=== PATIENT | male | born 1965 | race Two or more races ===

== ENCOUNTER 2021-07-15 07:15 | Emergency (ER) | payer OTHER ==
[~2021-07-15] VITALS: Ht 185.4 cm; Wt 92.0 kg
[2021-07-15] MEDS ORDERED: KETOROLAC 30 MG/ML VIAL. IVP ONE (09:15)
[2021-07-15 09:34] LABS: BASO # 0.1 x10^3/uL (0.0-0.2); BASO % 1 % (0-3); EOS # 0.1 x10^3/uL (0.0-0.7); EOS % 1 % (0-3); HEMOGLOBIN 15.8 g/dL (13.0-17.5); LYMPH # 3.1 x10^3/uL (1.0-4.8); LYMPH % 41 % (24-48); MEAN CORPUSCULAR HEMOGLOBIN 31 pg (25-35); MEAN CORPUSCULAR HGB CONC 35 g/dL (31-37); MEAN CORPUSCULAR VOLUME 87 fL (79-100); MONO # 0.7 x10^3/uL (0.0-1.1); MONO % 9 % (0-9); NEUT # 3.6 x10^3/uL (1.8-7.7); NEUT % 48 % (31-73); PLATELET COUNT 318 x10^3/uL (140-400); RED BLOOD COUNT 5.19 x10^6/uL (4.30-5.70); RED CELL DISTRIBUTION WIDTH 13.1 % (11.5-14.5); WHITE BLOOD COUNT 7.5 x10^3/uL (4.0-11.0)
[2021-07-15 09:42] LABS: CALCIUM 8.7 mg/dL (8.5-10.1); GFR 77.6; POTASSIUM 3.4 mmol/L (3.5-5.1)
[2021-07-15] MEDS ORDERED: IOHEXOL 300 MG/ML 100ML VIAL. IV ONE (09:45)
[2021-07-15 09:48] LABS: ALBUMIN 3.6 g/dL (3.4-5.0); ALBUMIN/GLOBULIN RATIO 0.8 (1.0-1.7); TOTAL BILIRUBIN 0.8 mg/dL (0.2-1.0); TOTAL PROTEIN 7.9 g/dL (6.4-8.2)
[2021-07-15] MEDS ORDERED: CONTRAST GIVEN. MC PRN (10:00)
--- NOTE | 2021-07-15 10:19 | RAD ---
Examination: CT abdomen pelvis with IV contrast HISTORY: History of left inguinal hernia COMPARISON: None available Technique: Axial CT images of the abdomen without contrast. Coronal and sagittal reformats are perfor med Exposure: One or more of the following individualized dose reduction techniques were utilized for thi s examination: 1. Automated exposure control 2. Adjustment of the mA and/or kV according to patient size 3. Use of iterative reconstruction technique FINDINGS: Minimal bibasilar lung atelectasis. No evidence of free air identified in the abdomen.The liver, spl een, adrenals grossly appears unremarkable. The gallbladder is mildly distended. Stomach is mildly di stended. The visualized pancreas grossly appears unremarkable. The small bowel is mildly distended. T he appendix is normal. Feces and gas noted in the colon. Moderate size left inguinal hernia identifie d extending into the groin region containing fat, and loop of colon without evidence of obstruction. The bilateral kidneys enhance symmetrically. Urinary bladder is mildly distended No evidence of lytic bony destructive lesion. IMPRESSION: 1. Moderate size left inguinal hernia identified extending into the groin region containing fat, and loop of colon without evidence of obstruction. Electronically signed by: Jim Buchanan MD (07/15/2021 10:17 AM) [id number]
[2021-07-15 10:20] VITALS: BP 145/84
--- NOTE | 2021-07-15 10:48 | PHYS DOC ---
Past Medical History Past Surgical History: No Surgical History Smoking Status: Never Smoker Alcohol Use: Rarely Adult General Chief Complaint Chief Complaint: OTHER COMPLAINTS HPI HPI The patient is a 56-year-old male without known medical history. He presents for evaluation of an uncomfortable mass to his left groin which has been present for more than a year but which got more painful yesterday after he lifted a heavy box. No fevers, nausea or vomiting, upper respiratory congestion/rhinorrhea, cough, sore throat, shortness of breath or chest pain of any kind, abdominal pain of any kind, flank pain, midline back pain, dysuria, hematuria, polyuria or oliguria, scrotal or testicular pain, changes in bowel habits. Patient is alert and pleasantly appropriately interactive and in no acute distress with appropriate vital signs upon initial evaluation here in the emergency department. Review of Systems Review of Systems A 12 point review of systems was completed and was negative except where noted i n HPI above. Current Medications Current Medications Current Medications Medications (Trade) Dose Ordered Sig/Laurita Start Time Stop Time Status Last Admin Dose Admin Info (CONTRAST GIVEN -- Rx MONITORING) 1 each PRN DAILY PRN 07/15/21 10:00 07/17/21 09:59 Iohexol (Omnipaque 300 Mg/ml) 75 ml 1X ONCE 07/15/21 09:45 07/15/21 09:55 DC 07/15/21 10:02 75 ML Ketorolac Tromethamine (Toradol 30mg Vial) 30 mg 1X ONCE 07/15/21 09:15 07/15/21 09:16 DC 07/15/21 09:31 30 MG Allergies Allergies Allergies Coded Allergies Type Severity Reaction Last Updated Verified No Known Drug Allergies 07/15/21 No Physical Exam Physical Exam Older black male appearing nontoxic and in no acute distress. Head is normocephalic and atraumatic. Neck is supple and nontender. Oropharynx is moist. Lungs are clear to auscultation at all stations. There is a normal S1 and S2 without rubs or gallops and capillary refill is appropriate, less than 2 seconds globally. Abdomen is soft, nontender and nondistended. Skin is warm and dry without cyanosis, clubbing or edema. Psychiatrically, the patient demonstrates appropriate mood and affect and is alert. There is a large, soft, minimally tender mass to the left inguinal region without surrounding erythema. Current Patient Data Vital Signs Vital Signs Date Time Temp Pulse Resp B/P (MAP) Pulse Ox O2 Delivery O2 Flow Rate FiO2 07/15/21 09:50 64 16 133/83 (100) 98 Room Air 07/15/21 08:48 98.0 98.0 Lab Values Laboratory Tests Test 07/15/21 09:23 White Blood Count 7.5 x10^3/uL (4.0-11.0) Red Blood Count 5.19 x10^6/uL (4.30-5.70) Hemoglobin 15.8 g/dL (13.0-17.5) Hematocrit 45.0 % (39.0-53.0) Mean Corpuscular Volume 87 fL (79-100) Mean Corpuscular Hemoglobin 31 pg (25-35) Mean Corpuscular Hemoglobin Concent 35 g/dL (31-37) Red Cell Distribution Width 13.1 % (11.5-14.5) Platelet Count 318 x10^3/uL (140-400) Neutrophils (%) (Auto) 48 % (31-73) Lymphocytes (%) (Auto) 41 % (24-48) Monocytes (%) (Auto) 9 % (0-9) Eosinophils (%) (Auto) 1 % (0-3) Basophils (%) (Auto) 1 % (0-3) Neutrophils # (Auto) 3.6 x10^3/uL (1.8-7.7) Lymphocytes # (Auto) 3.1 x10^3/uL (1.0-4.8) Monocytes # (Auto) 0.7 x10^3/uL (0.0-1.1) Eosinophils # (Auto) 0.1 x10^3/uL (0.0-0.7) Basophils # (Auto) 0.1 x10^3/uL (0.0-0.2) Sodium Level 142 mmol/L (136-145) Potassium Level 3.4 mmol/L (3.5-5.1) L Chloride Level 105 mmol/L (98-107) Carbon Dioxide Level 28 mmol/L (21-32) Anion Gap 9 (6-14) Blood Urea Nitrogen 18 mg/dL (8-26) Creatinine 1.0 mg/dL (0.7-1.3) Estimated GFR (Cockcroft-Gault) 77.6 BUN/Creatinine Ratio 18 (6-20) Glucose Level 103 mg/dL (70-99) H Lactic Acid Level 1.1 mmol/L (0.4-2.0) Calcium Level 8.7 mg/dL (8.5-10.1) Total Bilirubin 0.8 mg/dL (0.2-1.0) Aspartate Amino Transferase (AST) 31 U/L (15-37) Alanine Aminotransferase (ALT) 68 U/L (16-63) H Alkaline Phosphatase 53 U/L (46-116) Total Protein 7.9 g/dL (6.4-8.2) Albumin 3.6 g/dL (3.4-5.0) Albumin/Globulin Ratio 0.8 (1.0-1.7) L Laboratory Tests 07/15/21 09:23 Laboratory Tests 07/15/21 09:23 EKG EKG [] Radiology/Procedures Radiology/Procedures Examination: CT abdomen pelvis with IV contrast HISTORY: History of left inguinal hernia COMPARISON: None available Technique: Axial CT images of the abdomen without contrast. Coronal and sagittal reformats are performed Exposure: One or more of the following individualized dose reduction techniques were utilized for this examination: 1. Automated exposure control 2. Ad justment of the mA and/or kV according to patient size 3. Use of iterative reconstruction technique FINDINGS: Minimal bibasilar lung atelectasis. No evidence of free air identified in the abdomen.The liver, spleen, adrenals grossly appears unremarkable. The gallbladder is mildly distended. Stomach is mildly distended. The visualized pancreas grossly appears unremarkable. The small bowel is mildly distended. The appendix is normal. Feces and gas noted in the colon. Moderate size left inguinal hernia identified extending into the groin region containing fat, and loop of colon without evidence of obstruction. The bilateral kidneys enhance symmetrically. Urinary bladder is mildly distended No evidence of lytic bony destructive lesion. IMPRESSION: 1. Moderate size left inguinal hernia identified extending into the groin region containing fat, and loop of colon without evidence of obstruction. Electronically signed by: Jim Buchanan MD (07/15/2021 10:17 AM) [id number] DICTATED and SIGNED BY: JIM BUCHANAN MD DATE: 07/15/21 [id number] 0 Course & Med Decision Making Course & Med Decision Making Well-appearing 56-year-old gentleman presenting for evaluation of left inguinal hernia, hurting a little more and seeming a little more swollen since lifting a heavy box yesterday. Labs and imaging as noted. No evidence for strangulation. Will discharge with instructions to call the surgery clinic on Saturday; patient needs close follow-up to discuss operative intervention. Ibuprofen and/or Tylenol in the meantime for pain, return if symptoms worsen. All questions from patient have been answered. Dragon Disclaimer Dragon Disclaimer This electronic medical record was generated, in whole or in part, using a voice recognition dictation system. Departure Departure Impression: Primary Impression: Left inguinal hernia Disposition: HOME / SELF CARE / HOMELESS Condition: STABLE Referrals: TRENTON ZIMMERMAN MD Patient Instructions: Inguinal Hernia, Adult Additional Instructions: Follow-up very closely in the general surgery clinic with Dr. Zimmerman in the next 2 to 4 days for reevaluation of your symptoms and to discussion of next best steps in care. Please call on Saturday to make an appointment to be seen. You may take ibuprofen and/or Tylenol as needed for any discomfort. Return to the e mergency department right away for severely worsening discomfort, with worsening symptoms of any kind or with any other new symptoms of concern. RAEGAN GALDAMEZ MD Jul 15, 2021 10:48
== END 2021-07-15 11:10 | disposition home or self-care (01) ==
LOC: ER 07:15
DX: K40.90 Unilateral inguinal hernia, without obstruction or gangrene, not specified as recurrent (principal)
CPT/HCPCS: 36415; 74177; 80053; 83605; 85025; 96374; 99285; J1885; Q9967